=== PATIENT | female | born 1960 | race Asian ===

== ENCOUNTER 2020-01-07 09:10 | Outpatient (CLI) | payer OTHER | END 2020-01-07 21:10 | disposition home or self-care (01) | LOC: SMA 09:10 | PROVIDERS: ATTEND Family Medicine | DX: Z12.31 Encounter for screening mammogram for malignant neoplasm of breast (principal) | CPT/HCPCS: 77067 ==

== ENCOUNTER 2021-03-14 10:10 | Outpatient (CLI) | payer OTHER | END 2021-03-14 20:27 | disposition home or self-care (01) | LOC: SMA 10:10 | PROVIDERS: ATTEND Family Medicine | DX: Z12.31 Encounter for screening mammogram for malignant neoplasm of breast (principal) | CPT/HCPCS: 77067 ==